=== PATIENT | female | born 1940 | race Hispanic/Latino ===

== ENCOUNTER 2020-02-21 17:23 | Emergency (ER) | payer MEDICARE, OTHER ==
[2020-02-21 17:42] VITALS: BP 193/80
--- NOTE | 2020-02-21 17:45 | Event Note ---
ED Screening Note Date of service: 02/21/20 Time: 17:44 ED Screening Note: Patient complains of dizziness and shortness of breath x4 days Denies chest pain States she feels like she is going to faint and that her head is going to explode Patient is on blood thinners This initial assessment/diagnostic orders/clinical plan/treatment(s) is/are subject to change based on patients health status, clinical progression and re- assessment by fellow clinical providers in the ED. Further treatment and workup at subsequent clinical providers discretion. Patient/guardian urged not to elope from the ED as their condition may be serious if not clinically assessed and managed. Initial orders include: Labs Chest x-ray EKG CT head
--- NOTE | 2020-02-21 18:14 | XRay Report ---
CHEST 2 VIEWS INDICATION / CLINICAL INFORMATION: SOB. COMPARISON: 12/25/2015 FINDINGS: SUPPORT DEVICES: None. HEART / MEDIASTINUM: Stable. LUNGS / PLEURA: Interval development of small left-sided pleural effusion with associated ipsilateral atelectasis. No confluent infiltrates. No pneumothorax. ADDITIONAL FINDINGS: No significant additional findings. IMPRESSION: 1. Interval development of small left-sided pleural effusion with ipsilateral atelectasis. Signer Name: Shaheen Vásquez MD Signed: 02/21/2020 6:10 PM Workstation Name: [id number]
--- NOTE | 2020-02-21 18:26 | Cat Scan Report ---
CT HEAD WITHOUT CONTRAST INDICATION / CLINICAL INFORMATION: dizziness. TECHNIQUE: All CT scans at this location are performed using CT dose reduction for ALARA by means of automated e xposure control. COMPARISON: Head CT 10/04/2013 FINDINGS: HEMORRHAGE: No evidence of intracranial hemorrhage or extra-axial fluid collection. EXTRA-AXIAL SPACES: Focal dilatation of the anterior aspect of the left sylvian fissure is noted. 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 This is a sta ble finding. VENTRICULAR SYSTEM: The third and lateral ventricles are of normal size and configuration. CEREBRAL PARENCHYMA: There is an area of encephalomalacia in the anterior subinsular region on the le ft. 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 No additional areas of abnormal brain par enchymal attenuation are identified. There is no indication of recent infarction. MIDLINE SHIFT OR HERNIATION: There is no mass effect. CEREBELLUM / BRAINSTEM: Brainstem and cerebellum have an unremarkable appearance. MIDLINE STRUCTURES:No abnormalities of the pituitary gland or pineal region are identified. INTRACRANIAL VESSELS: Calcified atherosclerotic plaque is present along the course of the cavernous s egments of both internal carotid arteries. Similar findings are seen at the distal vertebral arteries . ORBITS: visualized portions of the orbits have an unremarkable appearance. SOFT TISSUES of HEAD: No significant abnormality. CALVARIUM: Evaluation of bone windows reveals no abnormalities. PARANASAL SINUSES / MASTOID AIR CELLS: Visualized portions of the paranasal sinuses are free from inf lammatory mucosal disease. Mastoid air cells are normally pneumatized. ADDITIONAL FINDINGS: None. IMPRESSION: 1. No acute intracranial abnormality. No significant interval change in the CT appearance of the brai n since September 23 09/30/2013. Signer Name: Francisco Sullivan MD Signed: 02/21/2020 6:22 PM Workstation Name: [id number]
[2020-02-21 18:32] LABS: Hemoglobin 14.5 gm/dl (10.1-14.3); Red Blood Count 5.25 M/mm3 (3.65-5.03)
[2020-02-21 18:33] LABS: Basophils % (Auto) 0.3 % (0.0-1.8); Eosinophils # (Auto) 0.1 K/mm3 (0.0-0.4); Eosinophils % (Auto) 1.1 % (0.0-4.3); Hematocrit 44.8 % (30.3-42.9); Lymphocytes # (Auto) 1.1 K/mm3 (1.2-5.4); Lymphocytes % (Auto) 10.1 % (13.4-35.0); Mean Corpuscular HGB Conc 32 % (30-34); Mean Corpuscular Volume 85 fl (79-97); Monocytes # (Auto) 0.7 K/mm3 (0.0-0.8); Monocytes % (Auto) 6.9 % (0.0-7.3); Platelet Count 280 K/mm3 (140-440); Red Cell Distribution Width 16.1 % (13.2-15.2)
[2020-02-21 19:00] LABS: Alanine Aminotransferase 8 units/L (7-56); Albumin 3.9 g/dL (3.9-5); BUN/Creatinine Ratio 20; Blood Urea Nitrogen 16 mg/dL (7-17); Calcium 9.3 mg/dL (8.4-10.2); Hemolysis Index 11
--- NOTE | 2020-02-21 22:43 | Emergency Department Report ---
ED Dizziness HPI - General Chief Complaint: Arrhythmia/Palpitations Stated Complaint: HEART RACING/DIZZY Time Seen by Provider: 02/21/20 17:42 Source: patient Mode of arrival: Wheelchair Limitations: No Limitations - History of Present Illness Initial Comments: CC: "My head feels like it is floating away." HPI: Mrs. 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 Additional hx obtained from daughter Archana. Patient has had lightheadedness, shortness of breath, palpitations since 02/08. Patient has been evaluated for these symptoms by both PCP Dr. Field and Assistant Professor Of Physics Dr. Dunbar. Patient was evaluated with holter monitor for several days. No cardiac events reported according to daughter. Patient has intermittent lighteheadedness and palpitations which make her anxious. She feels scared when it occurs. She denies headache or chest pain. She is symptom free at this time. MD Complaint: dizziness, lightheadedness -: days(s) (-) Timing: gradual onset Description: lightheadedness History of Same: No History of Trauma: No Severity: mild, moderate Improves With: rest, other (movement, walking helps) Worsens With: nothing Associated Symptoms: shortness of breath, other (palpitations) - Related Data Previous Rx's Medication Instructions Recorded Last Taken Type Amoxicillin/K Clav Tab [Augmentin 1 each PO Q12HR #14 tablet 10/08/13 Unknown Rx 875MG TAB] HYDROcodone/APAP 5-325 [[place] 1 each PO Q6HR PRN #30 tablet 10/08/13 Unknown Rx 5-325 mg TAB] Ondansetron [Zofran Odt] 4 mg PO Q8H #10 tab.rapdis 10/08/13 Unknown Rx Warfarin [Coumadin] 2 mg PO QDAY #60 tablet 10/08/13 Unknown Rx Allergies Allergy/AdvReac Type Severity Reaction Status Date / Time ciprofloxacin [From Cipro] AdvReac Intermediate RASHES,ITCH Verified 09/28/13 21:31 ING ciprofloxacin HCl AdvReac Intermediate RASHES,ITCH Verified 09/28/13 21:31 [From Cipro] ING ED Review of Systems ROS: Stated complaint: HEART RACING/DIZZY Other details as noted in HPI Comment: All other systems reviewed and negative Constitutional: denies: fever, malaise Respiratory: shortness of breath. denies: cough Cardiovascular: palpitations. denies: chest pain ED Past Medical Hx - Past Medical History Previous Medical History?: Yes Hx Hypertension: Yes Hx Diabetes: Yes Hx Pulmonary Embolism: Yes Additional medical history: ERICA, hyperlipidemia - Surgical History Past Surgical History?: Yes Additional Surgical History: lumpectomy x2. benign cyst in throat 1964 - Social History Smoking Status: Never Smoker - Medications Home Medications: Home Medications Medication Instructions Recorded Confirmed Last Taken Type Amoxicillin/K Clav Tab [Augmentin 1 each PO Q12HR #14 tablet 10/08/13 Unknown Rx 875MG TAB] HYDROcodone/APAP 5-325 [[place] 1 each PO Q6HR PRN #30 tablet 10/08/13 Unknown Rx 5-325 mg TAB] Ondansetron [Zofran Odt] 4 mg PO Q8H #10 tab.rapdis 10/08/13 Unknown Rx Warfarin [Coumadin] 2 mg PO QDAY #60 tablet 10/08/13 Unknown Rx ED Physical Exam - General Limitations: No Limitations General appearance: alert, in no apparent distress - Head Head exam: Present: atraumatic, normocephalic - Eye Eye exam: Present: normal appearance - ENT ENT exam: Present: mucous membranes moist - Neck Neck exam: Present: normal inspection, full ROM - Respiratory Respiratory exam: Present: normal lung sounds bilaterally. Absent: respiratory distress, wheezes, rales, rhonchi - Cardiovascular Cardiovascular Exam: Present: regular rate, normal rhythm, normal heart sounds. Absent: systolic murmur, diastolic murmur, rubs, gallop - GI/Abdominal GI/Abdominal exam: Present: soft, normal bowel sounds. Absent: distended, tenderness, guarding, rebound - Extremities Exam Extremities exam: Present: normal inspection - Neurological Exam Neurological exam: Present: alert, oriented X3 - Psychiatric Psychiatric exam: Present: normal affect, normal mood - Skin Skin exam: Present: warm, dry, intact, normal color. Absent: rash ED Course Vital Signs 02/21/20 17:32 Temperature 98.1 F Pulse Rate 72 Respiratory 24 Rate Blood Pressure 193/80 [Left] O2 Sat by Pulse 94 Oximetry ED Medical Decision Making - Lab Data Result diagrams: 02/21/20 18:14 02/21/20 18:14 Laboratory Results - last 24 hr 12/03/20 12/03/20 12/03/20 17:38 18:14 18:14 WBC 10.7 RBC 5.25 H Hgb 14.5 H Hct 44.8 H MCV 85 MCH 28 MCHC 32 RDW 16.1 H Plt Count 280 Lymph % (Auto) 10.1 L Patrick % (Auto) 6.9 Eos % (Auto) 1.1 Baso % (Auto) 0.3 Lymph # (Auto) 1.1 L Patrick # (Auto) 0.7 Eos # (Auto) 0.1 Baso # (Auto) 0.0 Seg Neutrophils % 81.6 H Seg Neutrophils # 8.7 H Sodium 142 Potassium 4.3 Chloride 104.4 Carbon Dioxide 24 Anion Gap 18 BUN 16 Creatinine 0.8 Estimated GFR > 60 BUN/Creatinine Ratio 20 Glucose 112 H POC Glucose 108 H Calcium 9.3 Total Bilirubin 0.60 AST 11 ALT 8 Alkaline Phosphatase 104 Troponin T < 0.010 NT-Pro-B Natriuret Pep 376.6 Total Protein 7.3 Albumin 3.9 Albumin/Globulin Ratio 1.1 - EKG Data -: EKG Interpreted by [facility] EKG shows normal: sinus rhythm, axis, ST-T waves Rate: normal - EKG Data 02/21/20 22:46 EKG obtained 1730 EKG interpreted by nh Normal sinus rhythm rate 75 bpm normal axis normal QTC no ST elevation nonischemic T wave pattern right bundle branch block - Radiology Data Radiology results: report reviewed, image reviewed Radiology impressions CT head without contrast: No acute intracranial abnormality. No significant interval change in the CT appearance of the brain since September 2013, encephalomalacia old brain injury seen no indication of recent infarct Chest radiograph 2 views: Interval development of small left-sided pleural effusion with ipsilateral atelectasis - Medical Decision Making 1. Lightheadedness: No evidence of anemia or metabolic derangement noted on labs obtained. I do not believe this to be an anginal equivalent. Autonomic dysfunction elderly patient is a consideration. Hypertensive urgency is a consideration. No indication of ACS or lethal arrhythmia. No indication of acute CVA. 2. Pleural effusion: Small pleural effusion seen on chest radiograph today. Broad differential diagnosis including neoplasm. I had extensive conversation with daughter. She will take results of the chest radiograph images to both personal publishing manager Dr. Dunbar and golf shoe spike assembler Dr. Olmedo. 3. Hypertensive urgency: will need monitoring. Severely elevated blood pressure could explain patient's systems of lightheadedness. CT head without acute findings, CBC chemistry troponin within normal limits. EKG unremarkable. . Patient has follow-up with publishing manager Dr. Dunbar at 3 PM. Ultrasound of the carotid arteries is scheduled to be performed. Patient also will have echocardiogram performed tomorrow. Critical care attestation.: If time is entered above; I have spent that time in minutes in the direct care of this critically ill patient, excluding procedure time. ED Disposition Clinical Impression: Pleural effusion, left, Hypertensive urgency, Lightheadedness, Palpitations Disposition: [id number] TO HOME OR SELFCARE Is pt being admited?: No Does the pt Need Aspirin: No Condition: Stable Instructions: Pleural Effusion Referrals: Maria Fernanda DON MD [Primary Care Provider] - 3-5 Days
== END 2020-02-21 23:12 | disposition home or self-care (01) ==
LOC: ED 17:23
DX: J90 Pleural effusion, not elsewhere classified (principal); R42 Dizziness and giddiness; R00.2 Palpitations; I16.0 Hypertensive urgency; E11.9 Type 2 diabetes mellitus without complications; Z86.711 Personal history of pulmonary embolism; Z98.890 Other specified postprocedural states; Z79.899 Other long term (current) drug therapy; Z88.8 Allergy status to other drugs, medicaments and biological substances
CPT/HCPCS: 36415; 70450; 71046; 80053; 82962; 83880; 84484; 85025; 93005

== ENCOUNTER 2021-01-28 09:54 | Outpatient (CLI) | payer MEDICARE ==
--- NOTE | 2021-01-29 12:05 | Mammography Report ---
DIGITAL SCREENING MAMMOGRAM WITH CAD, 01/28/2021 CLINICAL INFORMATION / INDICATION: Routine screening mammography. Z12.31 TECHNIQUE: Digital bilateral 2D mammography was obtained in the craniocaudal and mediolateral obliqu e projections. This examination was interpreted with the benefit of Computer-Aided Detection analysis . COMPARISON: 02/15/2011 and 09/27/2014. FINDINGS: Breast Density: The breasts are almost entirely fatty. No dominant mass, suspicious calcifications, or architectural distortion in either breast. IMPRESSION: No mammographic evidence of malignancy. Follow up recommendation: Routine yearly BI-RADS Category 1: Negative. A "normal" or negative report should not discourage follow up or biopsy of a clinically significant f inding. A written summary of these findings will be mailed to the patient. The patient will be entered into a mammography reporting system which will generate a reminder letter for the patient's next appointmen t at the appropriate interval. The [employer] recommends yearly mammograms starting at age 40 and continuing as l shyam as a woman is in good health. Breast MRI is recommended for women with an approximate 20-25% or greater lifetime risk of breast cancer, including women with a strong family history of breast or ova joe cancer or who have been treated for Hodgkin's disease. Signer Name: Wero Brannon MD Signed: 01/29/2021 12:01 PM Workstation Name: [id number]
== END 2021-01-28 09:55 | disposition home or self-care (01) ==
LOC: MAMMO 09:54
PROVIDERS: ATTEND Internal Medicine
DX: Z12.31 Encounter for screening mammogram for malignant neoplasm of breast (principal)
CPT/HCPCS: 77067